=== PATIENT | male | born 1960 | race Caucasian/White ===

== ENCOUNTER → 2016-06-22 | Outpatient (CLI) | payer BC | END | disposition home or self-care (01) | LOC: PCVCIMAG 10:00 | PROVIDERS: ATTEND Internal Medicine Cardiovascular Disease | DX: R07.9 Chest pain, unspecified (principal); E78.5 Hyperlipidemia, unspecified; I10 Essential (primary) hypertension | CPT/HCPCS: 93325; 93351 ==

== ENCOUNTER → 2018-02-08 | Outpatient (CLI) | payer BC ==
[~2018-02-08] MED LIST: REGADENOSON 0.4 MG/5 ML DISP.SYRIN. IV ONE
--- NOTE | 2018-02-08 17:04 | PCVCIMAG ---
APPROVED REPORT Imaging Protocol: Rest Tc-99m/Stress Tc-99m 1 day Study performed: 02/08/2018 09:20:30 Indication: Chest Pressure, LBBB Patient Location: Out-Patient Stress Nurse: Coco Vogel RN [place] Tech:ORVILLE Carrillo Ht: 5 ft 10 in Wt: 230 lbs BSA: 2.21 m2 HR: 73 bpm BP: 126/74 mmHg BMI: 32.9 Rhythm: Sinus Rhythm, LBBB Medical History Medications: Amlodipine, ASA, Atorvastatin, Nexium, Vascepa, Indapamide, Bystolic Allergies: No known drug allergies Cardiac Risk Factors: Age, HTN, Hyperlipidemia, LBBB Pretest Chest Pain Characteristics: No chest pain Exercise History: Physically active Meds Held (24 hrs): Bystolic Resting Data Rest SPECT myocardial perfusion imaging was performed in supine position 45 minutes following the intravenous injection of 11.2 mCi of Tc-99m Sestamibi. Time of rest injection: 914 Date: 02/08/2018 Administration Route: IV Administration Site: Right Arm Pharmacologic Stress Pharmacologic stress test was performed by injecting Regadenoson 0.4 mg IV push over 10-15 seconds immediately followed by the intravenous injection of 32.1 mCi of Tc-99m Sestamibi. Time of stress injection: 1034 Date: 02/08/2018 Administration Route: IV Administration Site: Right Arm Gated Stress SPECT was performed 45 minutes after stress injection. The images were gated to evaluate regional wall motion and calculate left ventricular ejection fraction. Stress Test Details Stress Test: Pharmacologic stress was paired with low level exercise. Reason for pharmacologic stress test: Cough, LBBB. HRMax Heart Rate (APMHR): 161 bpm Resting HR: 83 bpmTarget HR (85% APMHR): 136 bpm Max HR Achieved: 114 bpm % of APMHR: 70 Recovery HR: 84 bpm BP Resting BP: 126/74 mmHg Max BP: 146/70 mmHg Recovery BP: 141/68 mmHg ECG Resting ECG: Sinus Rhythm, LBBB Stress ECG: Sinus Tachycardia, LBBB Arrhythmia: PVCs Recovery ECG: Sinus Rhythm, LBBB Clinical Reason for Termination: Completed protocol Stress Symptoms: Dyspnea Exercise duration: 4 min 00 sec Symptoms resolved during recovery. Stress ECG Conclusion ECG: Non-ischemic Study Quality Study: Good Artifact: Mild Diaphragmatic artifact Study Data Post stress, the left ventricular ejection was 75%.. SSS: 1 SRS: 12 SDS: 0 TID = 0.93. Perfusion No evidence of stress induced ischemia or prior myocardial infarction. Wall Motion Normal left ventricular size and function with no regional wall motion abnormalities. Nuclear Conclusion No evidence of stress induced ischemia or prior myocardial infarction. Normal left ventricular size and function with no regional wall motion abnormalities. Post stress, the left ventricular ejection was 75%. No prior study available for comparison. Interpreted by: Ab Vallecillo MD Electronically Approved: 02/08/2018 13:13:08 <Conclusion> ECG: Non-ischemic
--- NOTE | 2018-02-08 18:37 | PCVCIMAG ---
APPROVED REPORT Study performed: 02/08/2018 08:10:10 EXAM: Comprehensive 2D, Doppler, and color-flow Echocardiogram Patient Location: Echo lab Room #: 2Status: routine BSA: 2.21 HR: 68 bpmBP: 130/74 mmHg Rhythm: LBBB Other Information Study Quality: Good Risk Factors: Cardiac Risk Factors: Hyperlipidemia Indications Abnormal ECG Chest Pressure 2D Dimensions LVEF(%): 56.00 (>50%) IVSd: 9.38 (7-11mm)LVOT Diam: 23.16 (18-24mm) LVDd: 55.15 mm PWd: 9.64 (7-11mm)Ascending Ao: 30.46 (22-36mm) LVDs: 33.70 (25-40mm) Left Atrium: 35.15 (27-40mm) Aortic Root: 32.87 mm LV Single Plane 4CH: 53.00 % LV Single Plane 2CH: 57.00 % Biplane EF: 56.0 % Volumes Left Atrial Volume (Systole) Single Plane 4CH: 63.03 mLSingle Plane 2CH: 78.28 mL Biplane LA Volume: 72.00 mLLA ESV Index: 32.00 mL/m2 Aortic Valve AoV Peak Rivera.: 1.18 m/s AO Peak Gr.: 5.58 mmHgLVOT Max P.66 mmHg LVOT Max V: 0.96 m/s PATRICE Vmax: 3.41 cm2 Mitral Valve E/A Ratio: 1.3 MV Decel. Time: 181.00 ms MV E Max Rivera.: 0.79 m/s MV A Rivera.: 0.60 m/s IVRT: 100.35 ms TDI E/Lateral E': 7.18E/Medial E': 13.17 Medial E' Rivera.: 0.06 m/s Lateral E' Rivera.: 0.11 m/s Pulmonary Valve PV Peak Rivera.: 1.80 m/sPV Peak Gr.: 13.03 mmHg Pulmonary Vein P Vein S: 0.43 m/sP Vein A: 0.30 m/s P Vein D: 0.37 m/sP Vein A Dur.: 83.0 msec P Vein S/D Ratio: 1.16 Tricuspid Valve TV Vmax: 0.65 m/s Left Ventricle The left ventricle is normal size. There is normal LV segmental wall motion. There is normal left ventricular wall thickness. Left ventricular systolic function is normal. The left ventricular ejection fraction is within the normal range. LVEF is 55-60%. The left ventricular diastolic function is normal. Right Ventricle The right ventricle is normal size. The right ventricular systolic function is normal. Atria The left atrium size is normal. The right atrium size is normal. Aortic Valve Aortic valve is trileaflet. The aortic valve is normal in structure. No aortic regurgitation is present. There is no aortic valvular stenosis. Mitral Valve The mitral valve is normal in structure. Trace to mild mitral regurgitation. No evidence of mitral valve stenosis. Tricuspid Valve The tricuspid valve is normal in structure. There is no tricuspid valve regurgitation noted. Pulmonic Valve Pulmonic valve is not well visualized. Moderate velocity increase is seen . Mild pulmonic stenosis. There is no pulmonic valvular regurgitation. Great Vessels The aortic root is normal in size. The ascending aorta is normal in size. Aortic arch is normal in caliber. IVC is normal in size and collapses >50% with inspiration. Pericardium There is no pericardial effusion. There is no pleural effusion. <Conclusion> The left ventricle is normal size. LVEF is 55-60%. The left ventricular diastolic function is normal. The right ventricle is normal size. The left atrium size is normal. Aortic valve is trileaflet. The aortic valve is normal in structure. There is no aortic valvular stenosis. Trace to mild mitral regurgitation. There is no tricuspid valve regurgitation noted. The aortic root is normal in size. There is no pericardial effusion.
== END | disposition home or self-care (01) ==
LOC: PCVCIMAG 08:17
PROVIDERS: ATTEND Internal Medicine Cardiovascular Disease
DX: I37.0 Nonrheumatic pulmonary valve stenosis (principal); R07.89 Other chest pain; I44.7 Left bundle-branch block, unspecified; I10 Essential (primary) hypertension; E78.5 Hyperlipidemia, unspecified; R07.9 Chest pain, unspecified; R53.83 Other fatigue; R94.31 Abnormal electrocardiogram [ECG] [EKG]
CPT/HCPCS: 78452; 93017; 93306; A9500; J2785